=== PATIENT | male | born 1990 | race Two or more races ===

== ENCOUNTER 2019-10-22 11:34 | Emergency (ER) | payer OTHER ==
[~2019-10-22] VITALS: Ht 172.7 cm; Wt 72.6 kg
[2019-10-22 12:06] VITALS: BP 124/77
--- NOTE | 2019-10-22 12:20 | Emergency Room Report ---
History of Present Illness General Chief Complaint: General Complaint Source: Patient Present Illness HPI 29 YO Male presents to the emergency department complaining of diffuse anterior chest tightness/discomfort. Patient denies pain. He denies shortness of breath or difficulty breathing. He also reports an episode of having tremors in bilateral hands which resolved on its own after 1 minute. Patient denies recent illness, significant past medical history, history of anxiety, paresthesias. Patient reports normal diet and amount of sleep. Denies significant family medical history other than high blood pressure and cancer. Denies unexplained weight loss, diaphoresis, or palpitations. Pt. reports he feels fatigued. Symptoms onset today only. Allergies: Coded Allergies: No Known Allergies (Unverified , 10/22/19) Patient History Past Medical History: see triage record Past Surgical History: none Pertinent Family History: none Social History: Reports: smoking - Vape Reviewed Nursing Documentation: PMH: Agreed; PSxH: Agreed Nursing Documentation-PMH Past Medical History: No Stated History Review of Systems All Other Systems: negative except mentioned in HPI Physical Exam Vital Signs Date Time Temp Pulse Resp B/P (MAP) Pulse Ox O2 Delivery O2 Flow Rate FiO2 10/22/19 12:06 98.4 69 16 124/77 (93) 96 Room Air Sp02 EP Interpretation: reviewed, normal General Appearance: no apparent distress, alert, GCS 15, non-toxic Head: normocephalic, atraumatic Eyes: bilateral eye normal inspection, bilateral eye PERRL ENT: hearing grossly normal, normal voice Neck: full range of motion, thyroid normal Respiratory: chest non-tender - pain not reproducible, lungs clear, normal breath sounds, no respiratory distress, no accessory muscle use, no wheezing, speaking full sentences Cardiovascular #1: regular rate, rhythm, no edema, normal capillary refill Cardiovascular #2: 2+ radial (R), 2+ radial (L) Musculoskeletal: normal range of motion, gait/station normal, non-tender Neurologic: alert, motor strength/tone normal, oriented x3, sensory intact, responsive, speech normal, other - no visible tremor. NVI Psychiatric: judgement/insight normal Skin: no rash, normal color, normal inspection Medical Decision Making PA Attestation Dr. Alegre is my supervising Physician whom patient management has been discussed with. Diagnostic Impression: Primary Impression: Sensation of chest tightness ER Course 29 YO Male presents to the emergency department complaining of diffuse anterior chest tightness/discomfort. Patient denies pain. He denies shortness of breath or difficulty breathing. He also reports an episode of having tremors in bilateral hands which resolved on its own after 1 minute. Patient denies recent illness, significant past medical history, history of anxiety, paresthesias. Patient reports normal diet and amount of sleep. Denies significant family medical history other than high blood pressure and cancer. Denies unexplained weight loss, diaphoresis, or palpitations. Pt. reports he feels fatigued. Symptoms onset today only. Ddx considered but are not limited to anxiety, RI, PE, asthma, thyroid storm, hyperthyroid, EPS, Vital signs: are WNL, pt. is afebrile H&PE are most consistent with possible anxiety attack ORDERS: -EKG: bradycardia sinus rhythm 47 bpm-- pt. endorses being told he has slow heart rate in the past. ED INTERVENTIONS: -0.5mg Ativan --pt. reports chest tightness has improved. DISCHARGE: At this time pt. is stable for d/c to home. Will provide printed patient care instructions, and any necessary prescriptions. Care plan and follow up instructions have been discussed with the patient prior to discharge. EKG Diagnostic Results EP Interpretation: Dr. Alegre Rate: bradycardiac - 47 BPM Rhythm: NSR ST Segments: no acute changes ASA given to the pt in ED: No PA Scribe Text This Interpretation was scribed by SAMANTHA Shelley. Last Vital Signs Date Time Temp Pulse Resp B/P (MAP) Pulse Ox O2 Delivery O2 Flow Rate FiO2 10/22/19 12:06 98.4 69 16 124/77 (93) 96 Room Air Disposition: HOME, SELF-CARE Condition: Stable Scripts Ibuprofen* (MOTRIN*) 600 Mg Tablet 600 MG ORAL THREE TIMES A DAY for 3 Days, #9 TAB 0 Refills Prov: Jennie Shelley 10/22/19 Referrals: [facility] Patient Instructions: Nonspecific Chest Pain, [id number] Additional Instructions: Take medications as directed. Follow up with a Primary Care Provider in 3-5 days, recommend cardiology follow up as an outpatient, even if your symptoms have resolved. --Please review list of primary care clinics, if you do not already have a primary care provider Return sooner to ED if new symptoms occur, or current symptoms become worse. - Please note that this Emergency Department Report was dictated using [employer] technology software, occasionally this can lead to erroneous entry secondary to interpretation by the dictation equipment. Jennie Shelley Oct 22, 2019 12:20
--- NOTE | 2019-10-22 12:21 | NUR ---
ED Nurse Note: PT. AAOX4. AMBULATORY. WALKED IN TO ER FROM HOME. PER PT., HE HAS BEEN VAPING FOR SOMETIME NOW AND TRIED A NEW VAPE LAST TUESDAY AND TUESDAY AND PT. NOTED THAT THE PT. STARTED HAVING TREMORS AROUND 2300 OF 10/21/19. DENIES CP OR SOB AT THIS TIME. PT STATED HIS TREMORS ARE NOT BAD IT WS LAST NIGHT
[2019-10-22] MEDS ORDERED: LORazepam 0.5mg tab ORAL ONE (12:30)
[2019-10-22 13:07] VITALS: BP 114/75
--- NOTE | 2019-10-22 13:20 | NUR ---
ED Nurse Note: vital signs reassesed per ERPA-c
[2019-10-22 13:42] VITALS: BP 117/72
--- NOTE | 2019-10-22 13:43 | NUR ---
ER DISCHARGE NOTE: Patient is cleared to be discharged per ERMD, pt is aox4, on room air, with stable vital signs. pt was given dc and prescription instructions, pt was able to verbalize understanding, pt id band removed. pt is able to ambulate with steady gait. pt took all belongings. pt took uber home.
[2019-10-22] MEDS ORDERED: IBUPROFEN600 MG ORAL (13:50)
== END 2019-10-22 13:50 | disposition home or self-care (01) ==
LOC: EMR 13:38
DX: R07.9 Chest pain, unspecified (principal); R00.1 Bradycardia, unspecified
CPT/HCPCS: 93005; 99283